=== PATIENT | female | born 1970 | race African-American/Black ===

== ENCOUNTER 2017-07-12 04:18 | Emergency (ER) | payer OTHER ==
[~2017-07-12 04:18] MED LIST: ARIP15TA2; CELEBREX; CIPR-263; LEVOTHYROXINE; OMEP20CA10
== END 2017-07-12 05:30 | disposition left against medical advice (07) ==
LOC: ER 04:59
DX: Z53.21 Procedure and treatment not carried out due to patient leaving prior to being seen by health care provider (principal)